=== PATIENT | female | born 1955 | race Caucasian/White ===

== ENCOUNTER 2017-03-16 01:08 | Inpatient (IN) | payer OTHER ==
[~2017-03-16] VITALS: Ht 180.3 cm; Wt 156.4 kg
--- NOTE | ~2017-03-16 | EKG ---
[address] [address] ELECTROCARDIOGRAM REPORT Name: PAWEL MADRID Room #: PRE IN [facility].#: [id number] Admission: Attend Phys: Adebayo Romero MD Discharge: Date of : 59 Report #: [id number] THIS REPORT FOR: //name// 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: Chery CAICEDO : 1955 Requested By: Adebayo Romero Order Number: [id number] MD: Surinder Brown Measurements Intervals [place] Rate: 82 P: 45 NE: 162 QRS: 30 QRSD: 136 T: 85 QT: 425 QTc: 497 Interpretive Statements Sinus rhythm Probable left atrial enlargement Nonspecific intraventricular conduction delay Borderline repolarization abnormality No previous ECG available for comparison Electronically Signed On 04-12-2017 20:28:34 CDT by Surinder Brown [email or web address] <ELECTRONICALLY SIGNED> By: Surinder Brown MD 04/12/172027 1250 1250 Surinder Brown MD /LAURA
--- NOTE | ~2017-03-16 | O ---
[facility] [place] [address] OPERATIVE REPORT Name: PAWEL MADRID Room #: 403-P [facility] M.R.#: [id number] Admission: 04/25/17 Attend Phys: Adebayo Romero MD Discharge: 04/28/17 Date of : 59 Report #: [id number] THIS REPORT FOR: //name// CC: Constanza Romero DATE OF SERVICE: 04/25/2017 PREOPERATIVE DIAGNOSIS: Right knee degenerative joint disease, severe. POSTOPERATIVE DIAGNOSIS: Right knee degenerative joint disease, severe. PROCEDURE: Right total knee arthroplasty. SURGEON: Adebayo Romero MD VISUALIZER: MACO Gonzalez INDICATIONS FOR VISUALIZER: During the course of operation, extensive manipulation, retraction and limb positioning was required. This was afforded to me by my apartment assistant manager. ANESTHESIA: General. INDICATIONS: See hospital H and P. IMPLANTS UTILIZED: Used [employer] knee system. We used a cruciate retaining press fit femoral component, size 7 legion. We used a size 6 tibial tray with a 9 mm insert and a 32 mm patella. DESCRIPTION OF PROCEDURE: After adequate general anesthesia had been obtained, the patient's right lower extremity was prepped and draped in the usual meticulous sterile fashion. Limb was exsanguinated with gravity, tourniquet inflated to 350 torr. Anterior midline incision was made, subQ divided sharply. Hemostasis obtained with electrocautery. Medial parapatellar incision was made. Infrapatellar fat pad excised. Medial release performed. The knee was flexed. The drill was used to drill the distal femur. This hole was enlarged, irrigated, suctioned, and the intramedullary guide placed the full length of the femur. Distal femoral cutting guide pinned the appropriate height, distal femoral cut was made. I used measuring device to determine the size 5 was the appropriate size for this patient. We marked the distal femur, impacted the cutting guide into place and the anterior, posterior and chamfer cuts were made. Rongeur was used to remove additional osteophytes. At this time, the ACL was transected, tibia translated anteriorly, menisci were [facility] [address] [place] [address] OPERATIVE REPORT Name: PAWEL MADRID Room #: 403-P [facility] IN M.R.#: [id number] Admission: 04/25/17 Attend Phys: Adebayo Romero MD Discharge: 04/28/17 Date of : 59 Report #: [id number] excised. A drill was used to drill central portion of the tibia. This hole was enlarged, irrigated, suctioned, and the intramedullary guide placed the full length of the tibia. Proximal tibial cutting guide placed at appropriate height. Proximal tibia cut was made. Size 6 gave us the best coverage on the tibia. With trial components in position with a 9 spacer, she had the best flexion and extension gap. Patella tracked normally. At this time, the patella was measured, cutting guide clamped into place, patellar cut was made. A 32 template gave us the best coverage. Pedicles were drilled, trial component put in position. The knee was taken through several cycles of flexion, extension to determine optimal tibial tray rotation. The tibial tray rotation marked, distal femur, punched. Trial components were removed. Tibial keel cuts were made. Bone plugs were placed proximal tibia and distal femur. The knee was irrigated with both pulse lavage and antibiotic irrigation. The cement was vacuum mixed and when it reached the appropriate consistency, the knee was thoroughly dried, the tibial tray was cemented in place. Excess cement was removed. Polyethylene was impacted in place and the femur impacted in place. The knee was taken out to 30 degrees of flexion with uniform compression placed across components. Patellar button was then cemented into place and again excess cement was removed. Irrigation was placed in the wound and allowed the wound to rest in the wound until the cement fully cured. When it had done so, the knee was irrigated, dried thoroughly, and inspected. Drains were placed superolaterally both deep and superficial. The retinacular layer closed with a combination of interrupted [id number] #1 Vicryl as well as running #1 Tevdek. SubQ closed with 2-0 Monocryl, skin closed with chris. Sterile compressive dressing applied. Tourniquet deflated. <ELECTRONICALLY SIGNED> By: Adebayo Romero MD 04/30/17 2123 1158 1214 Adebayo Romero MD /nt
[2017-04-10] MEDS ORDERED: COZAAR 50 MG TA50 M2 PO (15:09)
[2017-04-10] MEDS ORDERED: ASPIR 8181 MG PO (15:10)
[2017-04-10] MEDS ORDERED: FISH OIL 1,001000 M2 PO (15:10)
[2017-04-10] MEDS ORDERED: LIPITOR10 MG PO (15:11)
[2017-04-12 13:16] LABS: HEMATOCRIT 44.6 % (37.0-47.0); HEMOGLOBIN 14.7 gm/dL (12.0-15.0); MCH 31.3 pg (26.0-34.0); MCHC 33.1 g/dL (28.0-37.0); MCV 94.6 fL (80.0-100.0); RBC 4.72 mil/uL (4.20-5.00); WBC 5.5 thou/uL (4.0-11.0)
[2017-04-12 13:22] LABS: URINE BILIRUBIN NEGATIVE (Negative); URINE BLOOD TRACE (Negative); URINE COLOR YELLOW; URINE GLUCOSE-RANDOM* NEGATIVE (Negative); URINE KETONES NEGATIVE (Negative); URINE PROTEIN (DIPSTICK) NEGATIVE (Negative); URINE SPECIFIC GRAVITY <= 1.005 (1.003-1.035); URINE UROBILINOGEN 0.2 E.U./dl (0.2-1.0)
[2017-04-12 13:23] LABS: ALBUMIN 4.3 g/dL (3.4-5.0); CALCIUM 9.4 mg/dL (8.5-10.1); CREATININE 0.8 mg/dL (0.6-1.0); POTASSIUM 3.3 mmol/L (3.5-5.1); URINE LEUKOCYTES-REFLEX TRACE (Negative)
[2017-04-12 13:46] LABS: PROTIME 10.1 Seconds (9.3-11.4)
[2017-04-18 13:22] LABS: URINE BILIRUBIN NEGATIVE (Negative); URINE BLOOD NEGATIVE (Negative); URINE COLOR YELLOW; URINE GLUCOSE-RANDOM* NEGATIVE (Negative); URINE KETONES NEGATIVE (Negative); URINE LEUKOCYTES-REFLEX NEGATIVE (Negative); URINE PROTEIN (DIPSTICK) NEGATIVE (Negative); URINE SPECIFIC GRAVITY <= 1.005 (1.003-1.035); URINE UROBILINOGEN 0.2 E.U./dl (0.2-1.0)
[2017-04-25 08:00] VITALS: BP 158/97
[2017-04-25 17:26] VITALS: BP 124/64
[2017-04-26] VITALS (7 sets, daily range): BP systolic 96–121; BP diastolic 54–71
[2017-04-26 06:00] LABS: HEMATOCRIT 39.7 % (37.0-47.0); HEMOGLOBIN 13.1 gm/dL (12.0-15.0); MCH 31.4 pg (26.0-34.0); MCHC 33.1 g/dL (28.0-37.0); MCV 94.9 fL (80.0-100.0); RBC 4.18 mil/uL (4.20-5.00)
[2017-04-27 05:28] VITALS: BP 112/63
[2017-04-27 05:35] LABS: HEMATOCRIT 37.8 % (37.0-47.0); HEMOGLOBIN 12.7 gm/dL (12.0-15.0); MCH 31.5 pg (26.0-34.0); MCHC 33.7 g/dL (28.0-37.0); MCV 93.3 fL (80.0-100.0); RBC 4.05 mil/uL (4.20-5.00); RDW 13.1 % (10.5-14.5); WBC 6.4 thou/uL (4.0-11.0)
[2017-04-27] MEDS ORDERED: XARELTO10 MG PO (06:54)
[2017-04-27] MEDS ORDERED: PERCOCET 10-321 EACH PO (06:54)
[2017-04-27 08:43] VITALS: BP 119/69
[2017-04-27 12:24] VITALS: BP 115/58
[2017-04-27 17:51] VITALS: BP 143/66
[2017-04-27 22:10] VITALS: BP 127/64
[2017-04-28 05:55] VITALS: BP 125/83
[2017-04-28 06:23] LABS: MCH 31.4 pg (26.0-34.0); MCHC 33.4 g/dL (28.0-37.0); MCV 93.9 fL (80.0-100.0); RBC 3.84 mil/uL (4.20-5.00); RDW 12.9 % (10.5-14.5)
[2017-04-28 08:08] VITALS: BP 110/56
[2017-04-28 13:34] VITALS: BP 108/57
[2017-04-28 13:48] VITALS: BP 108/57
== END 2017-04-28 14:50 | disposition home health service (06) | DRG 470 ==
LOC: PRE 01:08 → 4N 04-25 05:07 → TBA 04-25 05:07 → PRE 04-25 05:28 → 4S 04-25 17:22 → 4N 04-25 22:27 → ENTRNSPT 04-28 14:38 → EDTRNSPTSTS 04-28 14:42 → 4N 04-28 14:50
PROVIDERS: Orthopaedic Surgery
PROC: 0SRC0J9 Replacement of Right Knee Joint with Synthetic Substitute, Cemented, Open Approach (ICD-10-PCS; principal; 2017-04-25)
DX: M17.11 Unilateral primary osteoarthritis, right knee (principal); Z88.1 Allergy status to other antibiotic agents; I10 Essential (primary) hypertension; E78.00 Pure hypercholesterolemia, unspecified; Z23 Encounter for immunization
CPT/HCPCS: 10790; 50010; 50101; 50415; 50954; 51130; 51225; 51320; 51412; 51771; 52001; 53078; 53364; 56525; 56527; 62110; 62900; 70005